=== PATIENT | male | born 1990 | race Caucasian/White ===

== ENCOUNTER → 2021-02-09 | Outpatient (CLI) | payer OTHER ==
[2021-02-09 16:26] LABS: ALBUMIN 4.5 g/dL (3.5-5.0); BILIRUBIN,DIRECT 0.1 mg/dL (0.0-0.5)
== END ==
LOC: LAB 15:44
PROVIDERS: ATTEND Podiatrist Foot & Ankle Surgery
DX: B35.1 Tinea unguium (principal)
CPT/HCPCS: 36415; 80076